=== PATIENT | female | born 2000 | race Caucasian/White ===

== ENCOUNTER → 2019-03-08 | Outpatient (CLI) | payer OTHER ==
--- NOTE | 2019-03-08 14:56 | RADIOLOGY IMAGING REPORT ---
FACILITY: [facility] [place] PATIENT NAME: Tara Moraes : 2000 MR: [id number] V: [id number] EXAM DATE: ORDERING PHYSICIAN: YESI TEIXEIRA TECHNOLOGIST: Location: [facility] Patient: Tara Moraes : 2000 Visit/Account:[id number] Date of Sevice: 03/08/2019 ADDENDUM #1 ADDENDUM: No images were obtained. Post void images of the right kidney still show very mild hydronephrosis, ma inly in the superior calyx system. This appears to be mildly improved from the prior images. No focal abnormality or stone. Report Dictated By: Fabricio Frost at 03/08/2019 4:01 PM Report E-Signed By: Fabricio Frost at 03/08/2019 4:04 PM ORIGINAL REPORT Renal ultrasound Indication: Dysuria and frequency. Comparison: None available Findings: Right kidney measures 10.5 x 3.7 x 5.3 cm in cc, AP, and transverse dimensions respectively. Left kidney measures 10.3 x 4.3 x 4.1 cm in cc, AP, and transverse dimensions respectively. There is normal echogenicity of the bilateral kidneys. There appears to be very mild right hydronephrosis. No stone is identified. No left hydronephrosis or stone. No renal lesions. Blood flow to both kidneys normal symmetric. The resistive index right kidn ey 0.62 left kidney 0.53. Bilateral ureteral jets were seen. Urinary bladder imaging was negative and there is mild post-void residual of 14 mL. Visualized abdominal aorta and IVC are unremarkable. IMPRESSION: 1. Very mild right hydronephrosis. Stone or cause is not identified. Left kidney is normal. 2. Very mild post void residual in the urinary bladder 14 mL. Report Dictated By: Fabricio Frost at 03/08/2019 2:47 PM Report E-Signed By: Fabricio Frost at 03/08/2019 2:49 PM WSN:[id number]
--- NOTE | 2019-03-08 14:59 | RADIOLOGY IMAGING REPORT ---
FACILITY: [facility] [place] PATIENT NAME: Tara Moraes : 2000 MR: [id number] V: [id number] EXAM DATE: ORDERING PHYSICIAN: YESI TEIXEIRA TECHNOLOGIST: Location: [facility] [place] Patient: Tara Moraes : 2000 Visit/Account:[id number] Date of Sevice: 03/08/2019 Transabdominal and transvaginal pelvic ultrasound INDICATION: Pelvic pain COMPARISON: None Available FINDINGS: Ovaries not well visualized on transabdominal exam. Therefore transvaginal exam was perform ed. Uterus measures 7.6 x 3.0 x 6.2 cm. The uterus is retroflexed and heterogeneous. No focal abnormality . Double wall endometrial stripe measures 8.4 mm and homogeneous. No fluid or focal normality. There is mild to moderate free fluid in the cul-de-sac. Urinary bladder is empty. Pelvic vessels appear unremarkable on this examination. Right ovary measures 2.3 x 1.8 x 2.1 cm and shows normal blood flow and contains several small follic les. Left ovary measures 2.8 x 1.2 x 2.1 cm and shows normal blood flow and contains several small follicl es. No adnexal masses. IMPRESSION: 1. Mild/moderate free fluid is seen in the pelvis. No cause identified. This is nonspecific at this t uzma. 2. The remainder of the exam is unremarkable. Both ovaries show good blood flow. Report Dictated By: Fabricio Frost at 03/08/2019 2:49 PM Report E-Signed By: Fabricio Frost at 03/08/2019 2:52 PM WSN:[id number]
== END ==
LOC: US 13:10
PROVIDERS: ATTEND Urology
DX: N13.30 Unspecified hydronephrosis (principal)
CPT/HCPCS: 76705; 76830; 76856

== ENCOUNTER 2019-03-21 04:03 | Day surgery (SDC) | payer OTHER ==
--- NOTE | 2019-03-18 14:55 | HISTORY AND PHYSICAL ---
DATE OF ADMISSION: March 21, 2019 CHIEF COMPLAINT Dysuria with sensation of incomplete bladder emptying and mild right hydronephrosis by ultrasound. HISTORY OF PRESENT ILLNESS Patient is a 18-year-old white, healthy female who was seen originally in Urology Clinic on March 01, 2019, for dysuria, urgency, and sensation of incomplete bladder emptying with pelvic fullness. She was originally seen in the [facility] on the 05 of February with similar complaints. At that time, she states that her symptoms did improve as she increased her water intake. At that time, she had a normal urinalysis, negative test, and negative STD evaluation. When seen on the , her symptoms had not greatly changed, and a urinalysis was normal. She was given some samples and started on a bladder diet as well as prophylactic dose of Macrobid once a day. A renal ultrasound was obtained, and she returned one week later to review the results. She was noted to have some mild hydronephrosis which did not improve on bladder emptying on the imaging tests done several hours after the original imaging modality. Her bladder appeared normal. She did have some mild free fluid in the cul-de-sac. Both ovaries appeared normal as well as her uterus. Given the finding of mild hydronephrosis with these associated bladder symptoms, options were discussed mainly of watchful waiting with a repeat ultrasound in four to six weeks versus invasive imaging test with either a CT urogram with delayed imaging or a renal scan versus anesthetic cystoscopy with retrograde pyelogram. With the latter, we could both evaluate her ureter and bladder for these above symptoms. After considering her options, she has elected to undergo the latter. She is now being admitted for an anesthetic cystoscopy exam under anesthesia and right retrograde pyelogram with possible ureteroscopy. PAST MEDICAL HISTORY 1. Migraine headaches. 2. Anemia. PAST SURGICAL HISTORY None. CURRENT MEDICATIONS Oral control. ALLERGIES No known drug allergies. SOCIAL HISTORY Patient is originally from [place], [place]. She is in [place] for education at . REVIEW OF SYSTEMS Patient denies chest pain, fever, chills, flank pain, gross hematuria, liver disease, bleeding disorder. She states her menstrual periods are stable and unchanged, and she has no history. PHYSICAL EXAMINATION GENERAL: Patient is a well-developed, well-nourished white female in no acute distress. HEENT: Normocephalic, atraumatic. CHEST: Clear to auscultation bilaterally. CARDIOVASCULAR: Regular rate and rhythm. ABDOMEN: Soft, nontender. No masses are palpated. GENITOURINARY: Deferred to the OR. EXTREMITIES: Without clubbing, cyanosis, or edema. NEUROLOGIC: Nonfocal. IMPRESSION A 18-year-old white female with irritative voiding symptoms and sensation of incomplete emptying with associated mild right hydronephrosis. PLAN Will perform anesthetic cystoscopy exam under anesthesia and right retrograde pyelogram with possible ureteroscopy as indicated. MTDD
[2019-03-18 17:54] LABS: PLATELET COUNT, AUTOMATED 273 K/uL (150-450)
[~2019-03-21] VITALS: Ht 165.1 cm; Wt 55.3 kg
[~2019-03-21 04:03] MED LIST: LEVO1TAB31 PO; NITR-105 PO
[2019-03-21] MEDS ORDERED: IOPAMIDOL 20 ML VIAL IT ONE ×2 (07:15→07:16)
[2019-03-21] MEDS ORDERED: MIDAZOLAM 2 MG/2 ML VIAL IVP PRN (07:40)
[2019-03-21] MEDS ORDERED: ceFAZolin(*) 1 GM VIAL 1 GM in NS(*) 0.9% 100 ML MINI-BAG 100 ML IVPB ONE (07:40)
[2019-03-21] MEDS ORDERED: LIDOCAINE/SOD BICARB 8.4% SYR ID ONE (07:40)
[2019-03-21] MEDS ORDERED: FAMOTIDINE 20 MG TAB PO ONE (07:40)
[2019-03-21] MEDS: NORMOSOL R SOLN(*) 1000 ML BAG 1,000 ML IV PRN ×2 (07:41→09:37)
[2019-03-21] MEDS ORDERED: fentaNYL CITR 100 MCG/2 ML AMP ONE (08:01)
[2019-03-21] MEDS ORDERED: KETAMINE HCL-NS 50 MG/5 ML SYR ONE (08:01)
[2019-03-21] MEDS ORDERED: LIDOCAINE MPF 1% 5 ML VIAL ONE (08:01)
[2019-03-21 08:20] VITALS: BP 125/91
[2019-03-21] MEDS ORDERED: ONDANSETRON 4 MG/2 ML VIAL ONE (09:11)
[2019-03-21] MEDS ORDERED: DEXAMETHASONE SOD PHOS 10MG/ML ONE (09:11)
[2019-03-21] MEDS ORDERED: PROPOFOL EMUL(*) 10MG/ML 20 ML 20 ML ONE (09:11)
[2019-03-21] MEDS ORDERED: KETOROLAC 30 MG/ML VIAL ONE (09:12)
[2019-03-21] MEDS ORDERED: BELLADONNA ALK/OPIUM 60MG SUPP PR ONE (09:18)
--- NOTE | 2019-03-21 10:44 | RADIOLOGY IMAGING REPORT ---
FACILITY: [facility] [place] PATIENT NAME: Tara Moraes : 2000 MR: [id number] V: [id number] EXAM DATE: ORDERING PHYSICIAN: YESI TEIXEIRA TECHNOLOGIST: Location: [facility] [place] Patient: Tara Moraes : 2000 Visit/Account:[id number] Date of Sevice: 03/21/2019 Exam type: RETROGRADE PYELOGRAM History: HEMATURIA Comparison: Renal ultrasound March 08, 2019 Findings: 241 C-arm spot views were submitted over the abdomen and pelvis. The total fluoroscopy time was 0.49 minutes. The fluoroscopy dose was 15.3 mgray. Multiple images demonstrate contrast injected into b oth renal collecting systems and ureters without evidence of hydronephrosis or intraluminal filling d efect. IMPRESSION: 1. As above Report Dictated By: Tricia Doyle MD at 03/21/2019 10:29 AM Report E-Signed By: Tricia Doyle MD at 03/21/2019 10:34 AM WSN:[id number]
[2019-03-21 10:50] VITALS: BP 118/86
--- NOTE | 2019-03-21 10:50 | NUR ---
Transferred from PACU. Report received from Melvin Jerome RN.
--- NOTE | 2019-03-21 10:55 | NUR ---
Patient is awake and in good spirits upon transfer to stepdown. only complaint is that she is a little cold. blankets repositions for comfort. other needs met. will continue to monitor and assess.
[2019-03-21] MEDS ORDERED: PHEN200T32 PO (10:56)
[2019-03-21] MEDS ORDERED: DOCU-416 PO (10:56)
[2019-03-21] MEDS ORDERED: ACET-1966 PO (10:58)
[2019-03-21] MEDS ORDERED: IBUP100T54 PO (10:59)
--- NOTE | 2019-03-21 11:05 | NUR ---
Patient up the bathroom to void. states no dizziness or light headedness at this time. will continue to monitor. patient able to void bladder.
[2019-03-21 11:07] VITALS: BP 111/88
--- NOTE | 2019-03-21 11:28 | NUR ---
Patient threw up. 340 ml out. will continue to monitor.
[2019-03-21 11:39] VITALS: BP 127/81
--- NOTE | 2019-03-21 11:40 | NUR ---
Patient states she really wants to leave. says she thinks fresh air will help her alot.
--- NOTE | 2019-03-21 11:45 | NUR ---
Patent walked out at 1145.
--- NOTE | 2019-03-21 12:48 | OPERATIVE REPORT 1 ---
EVENT DATE: March 21, 2019 SURGEON: Tino Reed MD ANESTHESIOLOGIST: Madan Thompson MD ANESTHESIA: General. PREOPERATIVE DIAGNOSES 1. Irritative voiding symptoms. 2. Mild right hydronephrosis.l POSTOPERATIVE DIAGNOSES 1. Irritative voiding symptoms. 2. Mildly stenotic compound infundibulum upper pole, right kidney. PROCEDURE PERFORMED 1. Cystoscopy. 2. Bilateral retrograde pyelograms. 3. Bimanual exam under anesthesia. ESTIMATED BLOOD LOSS Minimal. IV FLUIDS Crystalloids. DRAINS None. COMPLICATIONS None. CONDITION The patient was taken to the recovery room awake and in stable condition. STATEMENT OF MEDICAL NECESSITY Patient is a 18-year old white female with several month history of irritating voiding symptoms with mild pelvic discomfort and sensation of incomplete emptying. A renal ultrasound was performed, which showed some mild right hydronephrosis. She is now being brought to the operating room for planned exam under anesthesia and retrograde pyelograms with possible ureteroscopy. DESCRIPTION OF PROCEDURE Patient was brought to the operating room. After general anesthetic was obtained, she was placed in the dorsal lithotomy position and prepped and draped in the usual sterile manner. Physical exam was normal with a normal positioned urethral meatus with no anterior vaginal wall masses. She had normal external genitalia. At this point, the 21-Georgian rigid scope was introduced into the patient's urethra. Using the 7-degree lens, she had normal appearing urethra without evidence of bladder neck inflammatory masses or strictures. Her bladder mucosa was normal without tumor or lesions. She had both slit-like ureteral orifices in the respected hemitrigone, both effluxing clear urine. At this point, a right retrograde pyelogram was performed using the 8-Georgian cone-tipped catheter, injecting 7 cc of contrast material in a retrograde manner. She had a normal appearing ureter in collecting system except for the upper pole, which she had a compound calyx with mildly stenotic infundibulum. It did drain over time but was delayed compared to the rest of the collecting system. A left pyelogram was performed in a similar manner and was normal with prompt drainage. Patient's bladder was filled and she had a capacity of greater than 800 cc. After drainage, there were no petechial hemorrhaging or other lesions. At this point, a second retrograde pyelogram was performed on the right side to further delineate the pole anatomy and it also appeared in a similar image. At this point, the patient's bladder was drained to the cystoscopic sheath. Bimanual exam was performed, which revealed a normal pelvis. Bladder could not be palpated after it was emptied and there were no pelvic masses. Digital rectal exam was performed, which was normal as well. B and O suppository was given per rectally. She was awakened in the operating room and taken to the recovery area in stable condition. PLAN We will have the patient discharged home today on Pyridium with Colace and [id number] Motrin and Tylenol. We will plan to see her in the Urology Clinic in approximately four to six weeks to check her symptoms and discuss results. YAKOV
== END 2019-03-21 10:50 | disposition home or self-care (01) ==
LOC: OR 04:03
PROVIDERS: ATTEND Urology
DX: N13.30 Unspecified hydronephrosis (principal); R39.198 Other difficulties with micturition
CPT/HCPCS: 36415; 52005; 74420; 81001; 81025; 85025; 87088; C1758; J0690; J1100; J1885; J2001; J2250; J2405; J2704; J3010; J3490; Q9966; 82040; 82247; 82310; 82374; 82435; 82565; 82947; 84075; 84132; 84155; 84295; 84450; 84460; 84520